=== PATIENT | male | born 1980 | race Caucasian/White ===

== ENCOUNTER 2017-01-10 21:25 | Emergency (ER) | payer MEDICAID ==
[~2017-01-10] VITALS: Ht 188 cm; Wt 86.2 kg
[2017-01-10 21:29] VITALS: BP 124/74
== END 2017-01-10 22:03 | disposition home or self-care (01) ==
LOC: ER 21:29
DX: T65.891A Toxic effect of other specified substances, accidental (unintentional), initial encounter (principal); F17.200 Nicotine dependence, unspecified, uncomplicated; Y92.89 Other specified places as the place of occurrence of the external cause
CPT/HCPCS: A4606; Z7502; Z7610